=== PATIENT | female | born 1955 ===

== ENCOUNTER 2021-04-21 10:00 | Inpatient (IN) | payer OTHER ==
[~2021-04-21] VITALS: Ht 160 cm; Wt 67.6 kg
[2021-04-21] MEDS ORDERED: PREVACID30 MG PO (14:15)
[2021-04-21] MEDS ORDERED: DIOVAN40 MG PO (14:15)
[2021-04-21] MEDS ORDERED: GABAPENTIN400 MG PO (14:15)
[2021-04-21] MEDS ORDERED: ATORVASTATIN CA20 MG PO (14:16)
== END 2021-04-29 13:29 | disposition home or self-care (01) | DRG 743 ==
LOC: O/R 04-28 05:47 → SURH 04-28 10:00 → OB/GYN 04-28 16:47 → SURH 04-28 17:25
PROVIDERS: ADMIT Obstetrics & Gynecology Gynecologic Oncology; ATTEND Obstetrics & Gynecology Gynecologic Oncology
PROC: 0UT24ZZ Resection of Bilateral Ovaries, Percutaneous Endoscopic Approach (ICD-10-PCS; 2021-04-28)
PROC: 0UT74ZZ Resection of Bilateral Fallopian Tubes, Percutaneous Endoscopic Approach (ICD-10-PCS; 2021-04-28)
PROC: 07BC4ZZ Excision of Pelvis Lymphatic, Percutaneous Endoscopic Approach (ICD-10-PCS; 2021-04-28)
PROC: 0UT94ZZ Resection of Uterus, Percutaneous Endoscopic Approach (ICD-10-PCS; principal; 2021-04-28 10:15)
DX: N85.8 Other specified noninflammatory disorders of uterus (principal); N83.299 Other ovarian cyst, unspecified side; N95.0 Postmenopausal bleeding